=== PATIENT | female | born 1970 | race Caucasian/White ===

== ENCOUNTER 2017-11-26 07:22 | Day surgery (SDC) | payer OTHER ==
[2017-11-23 09:55] LABS: ALBUMIN 4.1 g/dL (3.4-5.0); ANION GAP 10 mmol/L (5-15); CALCIUM 9.4 mg/dL (8.5-10.1); CHLORIDE 107 mmol/L (98-107)
[2017-11-23 09:58] LABS: ALANINE AMINOTRANSFERASE 26 U/L (12-78); ALKALINE PHOSPHATASE 88 U/L (45-117); BILIRUBIN,TOTAL 0.2 mg/dL (0.2-1.0); CREATININE 0.74 mg/dL (0.55-1.02); TOTAL PROTEIN 8.2 g/dL (6.4-8.2)
[~2017-11-26] VITALS: Ht 157.5 cm; Wt 99.7 kg
[~2017-11-26 07:22] MED LIST: AMIT100T PO; AMLO5TAB2 PO; ATEN25TA PO; BUPIVACAINE/PF 0.25% ONE; EPINEPHRINE 1 MG/ML, 1ML ONE; GABA300C10 PO; HYDR-3237 PO; LISI-170 PO; METF500T4 PO; NEOMY/POLYMYXIN B GU IRR. 1 ML IRRIG ONE; PRAV10TA2 PO; TIZA2TAB PO
[2017-11-26] MEDS ORDERED: LACTATED RINGERS 1,000 ML IV SCH (07:42)
[2017-11-26 07:55] VITALS: BP 155/96
[2017-11-26] MEDS ORDERED: FENTANYL PF 250 MCG/5ML ONE (08:28)
[2017-11-26] MEDS ORDERED: MIDAZOLAM 1 MG/ML, 2ML ONE (08:28)
[2017-11-26] MEDS ORDERED: PROPOFOL 10 MG/ML, 20ML ONE (08:29)
[2017-11-26] MEDS ORDERED: ROCURONIUM 10 MG/ML,10ML ONE (08:30)
[2017-11-26] MEDS ORDERED: CEFAZOLIN 1,000 MG ONE ×2 (08:31)
[2017-11-26] MEDS ORDERED: SODIUM CHLORIDE 0.9% PF 10ML ONE (08:31)
[2017-11-26] MEDS ORDERED: GLYCOPYRROLATE 0.4 MG/2 ML, 2ML ONE (08:32)
[2017-11-26] MEDS ORDERED: NEOSTIGMINE 1 MG/ML, 10ML ONE (08:32)
[2017-11-26] MEDS ORDERED: DEXAMETHASONE 4 MG/ML, 1ML ONE ×3 (08:33→08:34)
[2017-11-26] MEDS ORDERED: ONDANSETRON 2MG/ML, 2ML ONE (08:33)
[2017-11-26 08:39] LABS: HCG UR SG 1.025 (1.003-1.030)
[2017-11-26] MEDS ORDERED: OXYcodone 5 MG/5 ML ORAL.SOL UDC PO PRN (09:30)
[2017-11-26] MEDS ORDERED: MEPERIDINE/PF 25MG/0.5ML IVPush PRN (09:30)
[2017-11-26] MEDS ORDERED: hydrALAzine 20 MG/ML, 1ML IV PRN (09:30)
[2017-11-26] MEDS ORDERED: ACETAMINOPHEN 325 MG TABLET PO PRN (09:30)
[2017-11-26] MEDS ORDERED: PROMETHAZINE 25 MG/ML, 1ML IV PRN (09:30)
[2017-11-26] MEDS ORDERED: LABETALOL 5MG/ML, 20ML IV PRN (09:30)
[2017-11-26] MEDS ORDERED: ONDANSETRON 2MG/ML, 2ML IVPush PRN (09:30)
[2017-11-26] MEDS ORDERED: FENTANYL PF 100 MCG/2ML ONE ×2 (10:22→11:36)
[2017-11-26] MEDS ORDERED: KETOROLAC 30 MG/1 ML ONE (10:57)
[2017-11-26] MEDS ORDERED: HYDROmorphone 2 MG/ML, 1ML ONE (11:36)
[2017-11-26] MEDS: FENTANYL PF 100 MCG/2ML IV PRN ×2 (11:40→11:50)
[2017-11-26] MEDS ORDERED: ACETAMINOPHEN 650 MG/20.3 ML UDC ONE (11:42)
[2017-11-26] MEDS ORDERED: OXYcodone 5 MG/5 ML ORAL.SOL UDC ONE (11:42)
[2017-11-26] MEDS: HYDROmorphone 1 MG/ML, 1ML IV PRN ×3 (11:45→12:05)
[2017-11-26] MEDS ORDERED: OXYcodone/APAP 5/325MG TABLET ONE (16:15)
== END 2017-11-26 17:00 ==
LOC: OUT 07:22
PROVIDERS: ATTEND Obstetrics & Gynecology Female Pelvic Medicine and Reconstructive Surgery
DX: N92.1 Excessive and frequent menstruation with irregular cycle (principal); N94.6 Dysmenorrhea, unspecified; N39.3 Stress incontinence (female) (male); G43.909 Migraine, unspecified, not intractable, without status migrainosus; E11.9 Type 2 diabetes mellitus without complications; I10 Essential (primary) hypertension; Z98.890 Other specified postprocedural states; Z88.0 Allergy status to penicillin; Z88.8 Allergy status to other drugs, medicaments and biological substances
CPT/HCPCS: 36415; 57265; 57288; 58552; 80053; 81025; 82962; 88307; 93005; C1771; J0171; J0690; J1100; J1170; J1885; J2250; J2405; J2704; J2710; J3010; J3490; J7120

== ENCOUNTER → 2018-06-19 | Outpatient (CLI) | payer OTHER ==
[~2018-06-19] MED LIST changes: -BUPIVACAINE/PF 0.25% ONE; -EPINEPHRINE 1 MG/ML, 1ML ONE; -METF500T4 PO; +METF500T5 PO; -NEOMY/POLYMYXIN B GU IRR. 1 ML IRRIG ONE
== END | disposition home or self-care (01) ==
LOC: CFH 10:38
PROVIDERS: ATTEND Family Medicine
DX: Z12.31 Encounter for screening mammogram for malignant neoplasm of breast (principal)
CPT/HCPCS: 77063; 77067

== ENCOUNTER 2020-12-31 20:56 | Emergency (ER) | payer OTHER ==
[~2020-12-31] VITALS: Ht 157.5 cm; Wt 95.0 kg
[~2020-12-31 20:56] MED LIST changes: +AMLO-150 PO; -AMLO5TAB2 PO; +METF500T17 PO; -METF500T5 PO; +TIZA-106 PO; -TIZA2TAB PO
[2020-12-31 21:01] VITALS: BP 144/77
[2020-12-31] MEDS ORDERED: KETOROLAC 30 MG/1 ML ONE (21:27)
[2020-12-31] MEDS ORDERED: OXYcodone/APAP 5/325MG TABLET ONE (21:27)
[2020-12-31] MEDS ORDERED: KETOROLAC 30 MG/1 ML IM ONE (21:30)
[2020-12-31] MEDS ORDERED: OXYcodone/APAP 5/325MG TABLET PO ONE (21:30)
--- NOTE | 2020-12-31 22:43 | NUR ---
pt in bed with no signs or symptoms of acute distresss noted respirations even and unlabored. wounds cleaned and dressed, nadia wrap to ankle and knee. pt provided extra nadia wrap and crutches. pt and verbalizes understanding and agreement with plan of care. ready to dc.
== END 2020-12-31 23:04 | disposition home or self-care (01) ==
LOC: ED 21:26
DX: S93.491A Sprain of other ligament of right ankle, initial encounter (principal); S80.02XA Contusion of left knee, initial encounter; M25.552 Pain in left hip; M25.551 Pain in right hip; I10 Essential (primary) hypertension; E11.9 Type 2 diabetes mellitus without complications; W01.0XXA Fall on same level from slipping, tripping and stumbling without subsequent striking against object, initial encounter; Y93.89 Activity, other specified; Y92.89 Other specified places as the place of occurrence of the external cause; Y99.8 Other external cause status; G89.11 Acute pain due to trauma
CPT/HCPCS: 72190; 73564; 73610; 73630; 96372; 99284; J1885